=== PATIENT | female | born 1985 | race African-American/Black ===

== ENCOUNTER 2020-04-08 13:36 | Emergency (ER) | payer MEDICAID, OTHER ==
[~2020-04-08] VITALS: Ht 170.2 cm; Wt 72.6 kg
[2020-04-08 14:55] VITALS: BP 138/90
[2020-04-08] MEDS ORDERED: HYDROcodone-ACET 5/325MG TAB PO ONE (16:00)
== END 2020-04-08 16:23 | disposition home or self-care (01) ==
LOC: ER 13:36
DX: S20.212A Contusion of left front wall of thorax, initial encounter (principal); W18.39XA Other fall on same level, initial encounter; Y93.89 Activity, other specified; Y92.89 Other specified places as the place of occurrence of the external cause; Y99.8 Other external cause status
CPT/HCPCS: 71101